=== PATIENT | male | born 1995 | race Caucasian/White ===

== ENCOUNTER 2021-07-16 14:15 | Emergency (ER) | payer SELFPAY ==
[~2021-07-16] VITALS: Ht 175.3 cm; Wt 91.0 kg
[2021-07-16 14:17] VITALS: BP 147/85
== END 2021-07-16 15:26 | disposition home or self-care (01) ==
LOC: ER 14:15
DX: R21 Rash and other nonspecific skin eruption (principal)
CPT/HCPCS: 99281